=== PATIENT | male | born 1985 | race Caucasian/White ===

== ENCOUNTER 2023-09-02 08:41 | Emergency (ER) | payer MEDICAID, SELFPAY ==
--- NOTE | ~2023-09-02 | XR_ITS ---
EXAMINATION: XR FOOT, LEFT CLINICAL INFORMATION: Puncture dorsal foot evaluate for foreign body COMPARISON: None available. TECHNIQUE: AP, lateral, and oblique views of the left foot. FINDINGS: No acute visible fracture or dislocation. Joint space alignment are maintained. Soft tissues are unremarkable with no radiopaque foreign body identified. XR/XR foot LT min 3V IMPRESSION: 1. No acute visible fracture or dislocation. 2. Soft tissues are unremarkable with no radiopaque foreign body identified.
[2023-09-02 08:50] VITALS: BP 143/99; PULSE 82; RESP 19; TEMP 36.8; O2SAT 99; BMI 21.0
--- NOTE | 2023-09-02 09:07 | ED.LOWEXIN ---
HPI - Extremity Injury (Lower) General Chief Complaint: Extremity Injury, Lower Stated Complaint: Wound L foot Time Seen by Provider: 09/02/23 09:01 Source: patient Mode of arrival: ambulatory Limitations: no limitations History of Present Illness ED Provider: MANJEET ALCANTAR PA-C HPI Narrative: 37-year-old male with pmhx significant for plaque psoriasis presents to the ED today for evaluation of left foot puncture wound sustained yesterday. Patient reports that while walking his dog yesterday, he believes he sustained puncture wound to the bottom of his left foot. He is unsure of what punctured him however went through his knee for and hit the bottom of his left foot. He feels as though there is a foreign body in there however can not visualize this. Endorses area is slightly tender to palpation. Denies discharge or bleeding. Denies hx of diabetes. Denies numbness, tingling, weakness of the LEs. Denies fever, chills. Patient reports tetanus updated 6 months ago. Related Data Previous Rx's ?Medication ?Instructions ?Recorded levofloxacin 750 mg tablet 750 mg PO DAILY 7 days #7 tabs 09/02/23 Allergies Allergy/AdvReac Type Severity Reaction Status Date / Time No Known Allergies Allergy Verified 09/02/23 08:54 Review of Systems Review of Systems: Constitutional: No fever, chills, fatigue, night sweats, weight changes ENT/Mouth: No ear pain, hearing loss, nasal congestion, sinus pain, rhinorrhea, sore throat Eyes: No eye pain, swelling, redness, vision changes, discharge Cardio: No chest pain, palpitations, DIAS, orthopnea, peripheral edema Pulm: No SOB, cough, sputum, wheezing, dyspnea, hemoptysis GI: No nausea, vomiting, hematemesis, abdominal pain, diarrhea, constipation, hematochezia, melena : No irregular bleeding, dysuria, frequency, urgency, hesitancy, hematuria, flank pain, urinary flow changes, urinary incontinence or retention MSK: No back pain, neck pain, joint pain, myalgias, +left foot pain Skin: No lesions, rashes Neuro: No weakness, numbness, paresthesias, LOC, dizziness, headache Psych: No anxiety/panic, depression, SI/HI, AH/VH All other systems reviewed and are negative. [facility] Past Medical History Attestation statement: The following information was validated with the patient. Source: old records reviewed and nursing notes reviewed Social History Social History Smoked in Last 30 Days: No Use of substances other than those prescribed or required for medical reasons: No Advance Directives: No Advance Directives Information Provided: Yes Physical Exam Vital Signs: Vital Signs: Last Vital Signs Temp 98.7 F 09/02/23 10:47 Pulse 77 09/02/23 10:47 Resp 18 09/02/23 10:47 BP 138/80 09/02/23 10:47 Pulse Ox 98 09/02/23 10:47 O2 Del Method Room Air 09/02/23 10:47 BMI result Body Mass Index 21.0 Vital signs stable Const: General: cooperative, healthy appearing, comfortable and no acute distress Orientation/consciousness: patient oriented x3 Limitations: no limitations HEENT: Head: Yes normal to inspection, Yes normocephalic and Yes atraumatic Eyes: General: appearance normal, both eyes and all related structures Conjunctivae: conjunctivae normal Sclerae: sclerae normal Pupils: Equal, round and reactive pupils present Neck: Neck: Yes normal visual inspection and Yes full ROM Resp: Effort & Inspection: normal respiratory effort Auscultation: clear to auscultation bilaterally Cardio: Rate: regular rate Rhythm: regular rhythm Skin: General skin exam: no rashes or lesions noted Neuro: General: patient oriented x3, gait normal and moves all extremities Cranial nerves: Yes Equal, round and reactive pupils present Extrem: Other: + small 0.5 cm puncture wound to plantar aspect of left foot. no obvious fb. Tender to palpation without palpable foreign body. No noted bleeding or discharge. No surrounding erythema. No overlying cellulitic changes. No noted swelling. General: Yes normal to inspection Course Course Course Narrative: 1050-- x-ray left foot without radiopaque foreign body. I do not appreciate foreign body on physical examination. Discussed workup results with patient. Will send him home with levofloxacin and podiatry follow-up. Patient agreeable with this. Patient has remained stable throughout ED visit today. Discussed worrisome signs and symptoms and when to return to the ED. All questions answered at this time. Patient is agreeable with disposition and stable for discharge. Medical Decision Making Medical Decision Making MDM Narrative: 37-year-old male with pmhx significant for plaque psoriasis presents to the ED today for evaluation of left foot puncture wound sustained yesterday. Vital signs stable, afebrile. He is nontoxic-appearing and in no acute distress. On exam, small 0.5 cm puncture wound to plantar aspect of left foot. no obvious fb. Tender to palpation without palpable foreign body. No noted bleeding or discharge. No surrounding erythema. No overlying cellulitic changes. No noted swelling. Differential diagnosis includes abrasion, puncture wound, retained fb. unlikely osteomyelitis. Plan for imaging and re-evaluation. Differential Diagnosis Differential Diagnoses: The differential diagnosis associated with the presentation includes as above. Admission/Observation Not indicated Independent Interpretation I performed an independent interpretation of an: Plain X-Ray Interpretation: X-ray left foot without radiopaque foreign body, agree with radiologist's interpretation. Radiology Impression Discussion of test interpretation with radiology: I have reviewed the radiologist's reading. Radiologist Impression: EXAMINATION: XR FOOT, LEFT CLINICAL INFORMATION: Puncture dorsal foot evaluate for foreign body COMPARISON: None available. TECHNIQUE: AP, lateral, and oblique views of the left foot. FINDINGS: No acute visible fracture or dislocation. Joint space alignment are maintained. Soft tissues are unremarkable with no radiopaque foreign body identified. XR/XR foot LT min 3V IMPRESSION: 1. No acute visible fracture or dislocation. 2. Soft tissues are unremarkable with no radiopaque foreign body identified. External Record Review External record reviewed: Inpatient record, Office record, Outpatient record, Prior outpatient labs, Prior outpatient radiology, Primary care record and Outside ED record Prescription Management I considered prescription management with: Pain Medication Critical Care Time Critical Care Time Critical Care Time: No Discharge Plan Discharge Clinical Impression: Puncture wound of foot Patient Disposition: Home, Self-Care Instructions: Levofloxacin (By mouth), Puncture Wound (ED) Additional Instructions: Your xrays today do not reveal radiopaque foreign body. Your tetanus is up to date. Levofloxacin is an antibiotic that has been sent to your pharmacy for broad spectrum coverage. Take this as prescribed for the next 7 days. Follow up with your PCP. You have also been provided with a referral to podiatry. You may call them to make an appointment, they will not call you. Return with new or worsening symptoms. In the case of an emergency call 911. Prescriptions: New levofloxacin 750 mg tablet 750 mg PO DAILY 7 Days Qty: 7 0RF Referrals: Hunter Riley MD [Physician] - 5 days (puncture wound plantar foot) Interventions: ED Discharge Assessment Last Done: 09/02/23 10:47 Discharge Date/Time: 09/02/23 10:52 Print Language: Niuean
[2023-09-02 10:46] VITALS: BP 138/80; PULSE 77; RESP 18; TEMP 37.1; O2SAT 98
[2023-09-02 10:47] VITALS: BP 138/80; PULSE 77; RESP 18; TEMP 37.1; O2SAT 98
== END 2023-09-02 10:52 | disposition home or self-care (01) ==
PROVIDERS: Emergency Provider Emergency Medicine Emergency Medical Services
DX: S91.332A Puncture wound without foreign body, left foot, initial encounter (principal); W45.8XXA Other foreign body or object entering through skin, initial encounter; Y93.K1 Activity, walking an animal; Y92.480 Sidewalk as the place of occurrence of the external cause; Y99.9 Unspecified external cause status
CPT/HCPCS: 73630; 99283

== ENCOUNTER 2023-11-17 18:33 | Emergency (ER) | payer MEDICAID, SELFPAY ==
--- NOTE | ~2023-11-17 | US_ITS ---
EXAMINATION: US SCROTUM CLINICAL INFORMATION: Left-sided mass. COMPARISON: None available. TECHNIQUE: A sonogram of the scrotum was performed assessing black-scale appearance and color Doppler flow. Spectral Doppler analysis of the arterial and venous flow were performed in the testes bilaterally. FINDINGS: RIGHT: Right testicle measures 4.4 x 2.1 x 2.8 cm, volume 13.7 mL. No focal testicular parenchymal lesions are visualized. A few punctate calcifications are present. Spectral Doppler analysis of the arterial and venous flow is normal in the right testis. Right epididymal head is normal in size. No right hydrocele or varicocele is seen. Right epididymal Doppler flow is normal. LEFT: Left testicle measures 4.2 x 2.8 x 2.6 cm, volume 16.0 mL. No focal testicular parenchymal lesions are visualized. A few punctate calcifications are present. Spectral Doppler analysis of the arterial and venous flow is normal in the left testis. Left epididymal head is normal in size. No left-sided hydrocele but a moderate-sized varicocele is present. Left epididymal Doppler flow is normal. US/US scrotum doppler IMPRESSION: 1. Moderate-sized left-sided varicocele. 2. There is microlithiasis with a few punctate calcifications are present in both testes. Electronically signed by: Nahum Franklin MD 11/17/2023 09:19 PM EDT
--- NOTE | ~2023-11-17 | US_ITS ---
EXAMINATION: US SCROTUM CLINICAL INFORMATION: Left-sided mass. COMPARISON: None available. TECHNIQUE: A sonogram of the scrotum was performed assessing black-scale appearance and color Doppler flow. Spectral Doppler analysis of the arterial and venous flow were performed in the testes bilaterally. FINDINGS: RIGHT: Right testicle measures 4.4 x 2.1 x 2.8 cm, volume 13.7 mL. No focal testicular parenchymal lesions are visualized. A few punctate calcifications are present. Spectral Doppler analysis of the arterial and venous flow is normal in the right testis. Right epididymal head is normal in size. No right hydrocele or varicocele is seen. Right epididymal Doppler flow is normal. LEFT: Left testicle measures 4.2 x 2.8 x 2.6 cm, volume 16.0 mL. No focal testicular parenchymal lesions are visualized. A few punctate calcifications are present. Spectral Doppler analysis of the arterial and venous flow is normal in the left testis. Left epididymal head is normal in size. No left-sided hydrocele but a moderate-sized varicocele is present. Left epididymal Doppler flow is normal. US/US scrotum IMPRESSION: 1. Moderate-sized left-sided varicocele. 2. There is microlithiasis with a few punctate calcifications are present in both testes. Electronically signed by: Nahum Franklin MD 11/17/2023 09:19 PM EDT
[2023-11-17 18:46] VITALS: BP 129/89; PULSE 95; RESP 17; TEMP 36.6; O2SAT 98; BMI 21.6
--- NOTE | 2023-11-17 18:48 | ED_ITS ---
HPI - Male Genitourinary General Chief complaint: Wound/Laceration Stated complaint: skin issue Related Data Previous Rx's ?Medication ?Instructions ?Recorded levofloxacin 750 mg tablet 750 mg PO DAILY 7 days #7 tabs 09/02/23 Allergies Allergy/AdvReac Type Severity Reaction Status Date / Time No Known Allergies Allergy Verified 11/17/23 18:49 [facility] Social History Social History Advance Directives: No Advance Directives Information Provided: No Do you have a plan to hurt others: No Plan Physical Exam Vital Signs: Vital Signs: Last Vital Signs Temp 98 F 11/17/23 18:46 Pulse 95 11/17/23 18:46 Resp 17 11/17/23 18:46 BP 129/89 11/17/23 18:46 Pulse Ox 98 11/17/23 18:46 O2 Del Method Room Air 11/17/23 18:46 BMI result Body Mass Index 21.6 Course Course Course Narrative: This is a Rapid Medical Examination (RME) performed by Lisette Rincon PA-C in triage. Full HPI, ROS, assessment and treatment plan per primary provider in the Main ED. 38 yo male with history of plaque psoriasis who presents to the ER for evaluatio n of a painful mass to the left testicle. he reports drainage from the area. no urinary symptoms, abdominal pain, N/V/D or fevers. no history of DM. he also reports multiple other areas on his skin that is opening up and draining infection. mostly on his lower extremities. in triage he is awake, alert, no distress. speaking in complete sentences. abd is soft and nontender. unable to perform exam in triage. Plan: US scrotum w/ doppler, UA, CT/NG, full skin/ exam Discharge Plan Discharge Clinical Impression: Scrotal mass Patient Disposition: Left W/O Completing Treatment Prescriptions: No Action levofloxacin 750 mg tablet 750 mg PO DAILY 7 Days Qty: 7 0RF Discharge Date/Time: 11/18/23 03:01
== END 2023-11-18 03:01 | disposition left against medical advice (07) ==
LOC: HO.ED 11-18 02:59
PROVIDERS: Emergency Provider Emergency Medicine
DX: N50.82 Scrotal pain (principal); R22.2 Localized swelling, mass and lump, trunk; R10.2 Pelvic and perineal pain
CPT/HCPCS: 76870; 93975; 99281; 99284

== ENCOUNTER 2024-03-24 23:39 | Emergency (ER) | payer MEDICAID, SELFPAY ==
[2024-03-24 23:58] VITALS: BP 146/101; PULSE 114; RESP 20; TEMP 36.7; O2SAT 98; BMI 22.4
[2024-03-25 00:24] LABS: Basophils Percent Auto 0.2 % (0-2); Eosinophils Absolute Auto 0.3 X10*3/uL (0.0-0.4); Eosinophils Percent Auto 1.9 % (0-4); Hematocrit 50.4 % (42.0-52.0); Hemoglobin 17.8 g/dl (14.0-18.0); Imm Gran Abs Auto 0.06 X10*3/uL (0.00-0.03); Imm Gran Pct Auto 0.5 % (0.0-0.4); Lymphocytes Absolute Auto 2.6 X10*3/uL (1.2-4.9); Lymphocytes Percent Auto 20.1 % (20-40); MANUAL DIFF FLAG SCAN; Mean Corpuscular HGB Conc 35.3 g/dl (31.0-36.0); Mean Corpuscular Volume 93.3 fL (80.0-98.0); Mean Platelet Volume 10.1 fL (9.4-12.4); Monocytes Absolute Auto 2.4 X10*3/uL (0.1-1.2); Monocytes Percent Auto 18.3 % (2-11); Neutrophils Absolute Auto 7.6 x10*3/uL (2.0-8.3); Platelet Count 199 X10*3/uL (160-400); Red Cell Distribution Width 13.8 % (11.0-16.0); SCAN SMEAR FLAG 1; White Blood Count 12.9 X10*3/uL (4.8-10.8)
[2024-03-25 00:35] LABS: Lactic Acid 1.3 mmol/L (0.5-2.0)
[2024-03-25 00:42] LABS: Alanine Aminotransferase 29 U/L (0-40); Albumin Level 4.4 g/dL (3.5-5.0); Alkaline Phosphatase 102 U/L (39-117); Anion Gap 16 (12-20); Aspartate Amino Transferase 37 U/L (5-37); Bilirubin Total 0.5 mg/dL (0.0-1.0); Blood Urea Nitrogen 5 mg/dL (9-16); Calcium 9.1 mg/dL (8.4-10.2); Carbon Dioxide 25 mmol/L (22-29); Chloride 102 mmol/L (96-108); Creatinine Clr Calc Pharmacy 116.2; Estimated Glomerular Filt Rate > 60; Glucose Random 94 mg/dL (60-115); Potassium 3.7 mmol/L (3.3-5.1); Sodium 139 mmol/L (135-145); Total Protein 9.6 g/dL (6.5-8.0)
[2024-03-25 00:47] LABS: SLIDE REVIEW VERIFIED
--- OUTSIDE RECORDS SUMMARY | 2024-03-25 03:55 | XMS_ITS | Encounter Summary ---
Author Organization [employer] Address [address] [facility] [facility] [address] [place] [address] Care Team Providers Care Strike Operations Officer Name Role Phone Verenice Brandt DUSTY Primary Care Provider [phone] Reason for Visit * Reason Comments Med Refill Encounter Details Date Type Department Care Team (Late st Contact Info) Description 05/22/2023 Refill [facility] MED[facility] [address] [place] [address] Natty Nielson MD [address] [place] [address] Psoriasis Social History Tobacco Use Types Packs/Day Years Used Date Smoking Tobacco: Every Day Cigarettes 0.5 13 Smokeless Tobacco: Never Comments:Quit x 2 years, res tarted October 2021. Alcohol Use Standard Drinks/Week Comments Yes 70 (1 standard drink = 0.6 oz pure alcohol) Drinking 10+ drinks per day, drinks everything Housing Stability Answer Date Recorded What is your housing situation today? I have zahira juan 12/13/[address] you li ve. Do you have problems with any of the following? None of the above 12/13/2022 Food Insecurity Answer Date Recorded Within the past 12 months, y ou worried that your food would run out before you got money to buy more: Never True 12/13/2022 Within the past 12 months,th e food you bought just didn't last and you didn't have enough money to get more: Never True 04/2022 Transportation Answer Date Recorded In the past 12 months, has l ack of transportation kept you from medical appts, meetings, work or from getting things needed for daily living? No 12/13/2022 Utilities Answer Date Recorded In the past 12 months, has t he electric, gas, oil or water company threatened to shut off services in your home? No 12/13/2022 Depression Answer Date Recorded Patient Health Questionnaire-2 Score 1 03/08/2022 Sex and Gender Information Value Date Recorded Sex Assigned at Male 03/07/2022 8:56 AM EST Legal Sex Male 8:34 PM EDT Gender Identity Male 03/07/2022 8:56 AM EST Sexual Orientation Straight 06/26/2022 3: 01 PM EDT documented as of this encounter Miscellaneous Notes * Telephone Encounter - ITZ Cotton - 05/23/2023 12:03 PM EDT VM from the pharmacy asking for this to be sent so the patient can receive his script for Friday hop picker - marked high priority to Dr Nielson documented in this encounter Plan of Treatment Not on file documented as of this encounter Visit Diagnoses Diagnosis Psoriasis Other psoriasis documented in this encounter Care Teams Strike Operations Officer Relationship Specialty Start Date End Date Verenice Brandt FNP [address] [place] [address] PCP - General Family Medicine 01/09/22 documented as of this encounter
--- OUTSIDE RECORDS SUMMARY | 2024-03-25 03:55 | XMS_ITS | Encounter Summary ---
Author Organization [employer] Address [address] [facility] [address] [place] [address] Care Team Providers Care Crane Ladle Person Name Role Phone Verenice Brandt UDSTY Primary Care Provider [phone] Reason for Visit * Reason Comments Med Refill Encounter Details Date Type Department Care Team (Late st Contact Info) Description 05/05/2023 Refill [facility] MED[facility] [address] [place] [address] Natty Nielson MD [address] [place] [address] Psoriasis Social History Tobacco Use Types Packs/Day [...] encounter Miscellaneous Notes * Telephone Encounter - Amanda Art LPN - 05/09/2023 9:36 AM EDT Call placed to patient. Mailbox full. * Telephone Encounter - Amanda Art LPN - 05/08/2023 9:47 AM EDT Call placed to patient. Mail box full unable to leave a message * Telephone Encounter - Amanda Art LPN - 05/07/2023 10:18 AM EDT Call placed to patient. LMOM to return call. * Telephone Encounter - Amanda Art LPN - 05/06/2023 2:26 PM EDT Call placed to patient. LMOM to return call. documented in this encounter Plan of Treatment Not on file documented as of this encounter Visit Diagnoses Diagnosis Psoriasis Other psoriasis documented in this encounter Care Teams Crane Ladle Person Relationship Specialty Start Date End Date Verenice Brandt FNP [address] [place] [address] PCP - General Family Medicine 01/09/22 documented as of this encounter
--- OUTSIDE RECORDS SUMMARY | 2024-03-25 03:55 | XMS_ITS | Encounter Summary ---
Author Organization [employer] Address [address] [place] [address] Care Team Providers Care Security Tester Name Role Phone Verenice Brandt Primary Care Provider [phone] Encounter Details Date Type Department Care Team (Late st Contact Info) Description 11/19/2023 Orders Only [facility] [address] [place] [address] Verenice Brandt FNP [address] [place] [address] Social History Tobacco Use Types Packs/Day Years [...] PM EDT documented as of this encounter Plan of Treatment Not on file documented as of this encounter Procedures Procedure Name Priority Date/Time Associated Diagnosis Comments US SCROTUM Routine 11/17/2023 9:16 AM EDT documented in this encounter Results * US Scrotum (11/17/2023 9:16 AM EDT) Anatomical Region Laterality Modality Body Ultrasound us Verenice MONTANO IMG US PROCEDURES Final Result documented in this encounter Visit Diagnoses Not on filedocumented in this encounter Care Teams Security Tester Relationship Specialty Start Date End Date Verenice Brandt FNP [address] [place] [address] PCP - General Family Medicine 01/09/22 documented as of this encounter
--- OUTSIDE RECORDS SUMMARY | 2024-03-25 03:55 | XMS_ITS | Encounter Summary ---
Author Organization [employer] Address [address] [place] [address] [facility] [place] [address] Care Team Providers Care Supervisor Briar [employer] Name Role Phone Jerrica Brandtanda DUSTY Primary Care Provider [phone] Reason for Referral * Imaging (Routine) - Pending Review Specialty Diagnoses / Procedures Referred By Liza michael Referred To Contact Radiology Diagnoses Swelling of lymph nodes Procedures US Axilla Alone Left Jayshree Rowe FNP-C [address] [place] [address] Phone: tel: fax: [facility] Radiology[address] Phone: tel: fax: Referral ID Status Reason Start Date Expiration Date V isits Requested Visits Authorized [id number] Pending Review 03/23/2024 03/23/2025 1 1 Reason for Visit * Reason Comments Adenopathy Encounter Details Date Type Department Care Team (Late st Contact Info) Description 03/17/2024 8:20 AM EST Office Visit [facility] [address] [place] [id number] Jayshree Rowe FNP-C [address] [place] [address] Swelling of lymph nodes (Primary Dx); Psoriasis; Tick bite of axillary region, left, sequela; Benign hypertension Social History Tobacco Use Types Packs/Day Years Used Date Smoking Tobacco: Every Day Cigarettes 0.5 13 Passive Smoke Exposure: Current Smokeless Tobacco: Never Tobacco Cessation:Ready to Q uit: Not Asked; Counseling Given: Not Answered Comments:Quit x 2 years, restarted October 2021. Alcohol Use Standard Drinks/Week Comments Yes 70 (1 standard drink = 0.6 oz pure alcohol) Drinking 10+ drinks per day, drinks everything Alcohol Answer Date Recorded How often do you have a drink containing alcohol ? 0 03/17/2024 How many drinks containing a lcohol do you have on a typical day when you are drinking? 0 03/17/2024 How often do you have six or more drinks on one occasion? 0 03/17/2024 Housing Stability Answer Date Recorded What is your housing situation today? I have zahira juan 03/17/[address] you li ve. Do you have problems with any of the following? None of the above 03/17/2024 Food Insecurity Answer Date Recorded Within the past 12 months, y ou worried that your food would run out before you got money to buy more: Never True 03/17/2024 Within the past 12 months,th e food you bought just didn't last and you didn't have enough money to get more: Never True 06/2024 Transportation Answer Date Recorded In the past 12 months, has l ack of transportation kept you from medical appts, meetings, work or from getting things needed for daily living? No 03/17/2024 Intimate Partner Violence Answer Date R ecorded Within the last year, have y ou been afraid of your partner or ex-partner? 2 03/17/2024 Within the last year, have y ou been humiliated or emotionally abused in other ways by your partner or ex-partner? 2 Within the last year, have y ou been kicked, hit, slapped, or otherwise physically hurt by your partner or ex-partner? 2 03/17/2024 Within the last year, have y ou been raped or forced to have any kind of sexual activity by your partner or ex-partner? 2 03/17/2024 Utilities Answer Date Recorded In the past 12 months, has t he electric, gas, oil or water company threatened to shut off services in your home? No 03/17/2024 Depression Answer Date Recorded Patient Health Questionnaire-2 Score 0 03/17/2024 Internet Access Answer Date Recorded Internet Access Q1 Yes 03/17/2024 Internet Access Q2 Not on file 03/17/2024 Education Answer Date Recorded What is the highest level of school you have completed or the highest degree you have received? Associate degree: occupational, technical, or vocational program 03/17/2024 Sex and Gender Information Value Date Recorded Sex Assigned at Male 03/07/2022 8:56 AM EST Legal Sex Male 8:34 PM EDT Gender Identity Male 03/07/2022 8:56 AM EST Sexual Orientation Straight 06/26/2022 3: 01 PM EDT Occupation Industry Job Start Date Job End Date Not on file Not on file Not on file Not on file documented as of this encounter Last Filed Vital Signs Vital Sign Reading Time Taken Comments Blood Pressure 150/70 03/17/2024 8:24 AM EST Pulse 100 03/17/2024 8:24 AM EST Temperature 36.6 ??C (97.9 ??F) 03/17/2024 8:24 AM ES T Respiratory Rate - - Oxygen Saturation 97% 03/17/2024 8:24 AM EST Inhaled Oxygen Concentration - - Weight 68.5 kg (151 lb) 03/17/2024 8:24 AM EST Height 172.7 cm (5' 8 ) 03/17/2024 8:24 AM EST Body Mass Index 22.96 03/17/2024 8:24 AM EST documented in this encounter Progress Notes * DUSTY Smith-Urbano - 03/17/2024 8:20 AM EST Images from the original note were not included. 03/17/24 Fadi Malik 1985 [id number] Fadi Malik is a 38 y.o. male here today for Adenopathy. HPI: HPI Patient presents with pain and swelling due to a swollen lymph node in the Lt axilla. Patient is immunocompromised due to taking a biologic agent for psoriasis. Currently breakout only on posterior RT calf. recalls having a tick bite. He was never tested or treated. Patient will be tested for tick borne illness today. Blood pressure elevated today due to being out of BP meds. Refill of Amlodipineordered. Patient needed refill on his biologic agent. Tick panel was negative. Ultrasound ordered to further evaluate the swollen lymph node. MEDICATIONS: Current Outpatient Medications: hydrOXYzine HCl (Atarax) 25 MG tablet, Take 25 mg by mouth if needed in the morning and at bedtime., Disp: , Rfl: ixekizumab (Taltz) 80 MG/ML injection, INJECT 1 PEN UNDER THE SKIN EVERY 4 WEEKS (Patient taking differently: Inject 80 mg under the skin. INJECT 1 PEN UNDER THE SKIN EVERY 4 WEEKS), Disp: 3 mL, Rfl:5 triamcinolone (Kenalog) 0.1 % ointment, APPLY TO ARMS, TRUNK, AND LEGS TWICE A DAY NEEDED FOR FLARES, Disp: , Rfl: b complex vitamins capsule, Take 1 capsule by mouth in the morning., Disp: 30 capsule, Rfl: 11 disulfiram (Antabuse) 250 MG tablet, Take 1 tablet (250 mg) by mouth in the morning., Disp: 30 tablet, Rfl: 11 naltrexone (Depade) 50 MG tablet, Take 1 tablet (50 mg) by mouth in the morning., Disp: 30 tablet, Rfl: 11 RECENT LABS: No results found for: CBCDIF , BMP , HGBA1C , MICROALB , LDLCHOL , TRIG , B12 REVIEW OF SYSTEMS: Review of Systems Skin: Plaque on lower posterior calf. All other systems reviewed and are negative. Swollen 10 mm lymph node in Lt axilla. PHYSICAL EXAM: BP (S) (!) 150/70 (BP Location: Left arm, Patient Position: Sitting, BP Cuff Size: Adult) Pulse 100 Temp 97.9 ??F (36.6 ??C) (Temporal) Ht 5' 8 (1.727 m) Wt 151 lb (68.5 kg) SpO2 97% BMI22.96 kg/m?? Physical Exam Vitals and nursing note reviewed. Constitutional: Appearance: Normal appearance. HENT: Head: Normocephalic and atraumatic. Nose: Nose normal. No congestion or rhinorrhea. Cardiovascular: Rate and Rhythm: Normal rate and regular rhythm. Pulses: Normal pulses. Heart sounds: Normal heart sounds. Pulmonary: Effort: Pulmonary effort is normal. Breath sounds: Normal breath sounds. Musculoskeletal: General: Normal range of motion. Cervical back: Normal range of motion. Skin: General: Skin is warm and dry. Comments: Swollen RT axilla lymph node 10 mm in size. Neurological: General: No focal deficit present. Mental Status: He is alert and oriented to person, place, and time. Psychiatric: Mood and Affect: Mood normal. Behavior: Behavior normal. Thought Content: Thought content normal. Judgment: Judgment normal. 06/26/2022 2:21 PM 07/31/2022 3:44 PM 08/06/2022 2:38 PM 09/03/2022 11:00 AM 05/13/2023 8:57 AM 05/27/2023 9:58 AM 03/17/2024 8:24 AM Vitals Systolic 142 126 144 129 131 100 150 Diastolic 100 87 86 84 84 70 70 Heart Rate 109 81 101 65 96 76 100 Temp 97.9 ??F (36.6 ??C) 98.1 ??F (36.7 ??C) 97.3 ??F (36.3 ??C) 97.7 ??F (36.5 ??C) 97.7 ??F (36.5??C) 97.5 ??F (36.4 ??C) 97.9 ??F (36.6 ??C) Resp 16 16 16 16 16 Height (in) 5' 8 (1.727 m) 5' 8 (1.727 m) 5' 8 (1.727 m) 5' 8 (1.727 m) 5' 8 (1.727 m) 5' 8 (1.727 m) 5' 8 (1.727 m) Weight (lb) 129.2 134 135.8 144.4 142.4 142 151 BMI 19.64 kg/m2 20.37 kg/m2 20.65 kg/m2 21.96 kg/m2 21.65 kg/m2 21.59 kg/m2 22.96 kg/m2 BSA (m2) 1.68 m2 1.71 m2 1.72 m2 1.77 m2 1.76 m2 1.76 m2 1.81 m2 Visit Report Report Report Report Report Report Report Significant value No Known Allergies ASSESSMENT AND PLAN: Problem List Items Addressed This Visit None Visit Diagnoses Psoriasis Encounter Diagnoses Name Primary? Psoriasis Tick bite of axillary region, left, sequela Swelling of lymph nodes Yes Benign hypertension Follow up after lab test results are received or if swelling in axilla increases in size. Called patient on 03/23/2024 to answer questions about the Tick panel that was recently ordered. Patient stated that he was in increased pain and reduced range of motion and that the lump in his LT axilla had increased in size and was now warm and red. He asked about taking antibiotics that he had at home which was discouraged. He was advised to go to the emergency department. Patient agreed that he would go to the emergency department. Take medications as prescribed. APRIL Smith [address] [address] documented in this encounter Miscellaneous Notes * Addendum Note - APRIL Smith - 03/17/2024 8:20 AM EST Addended by: JAYSHREE CERRATO on: 03/23/2024 02:04 PM Modules accepted: Orders documented in this encounter Plan of Treatment Scheduled Orders Name Type Priority Associated Diagnoses Orde r Schedule US Axilla Alone Left Imaging Routine Swelling of lymph nodes Expected: 03/23/2024, Expires: 03/23/2025 documented as of this encounter Procedures Procedure Name Priority Date/Time Associated Diagnosis Comments [facility] TICK PCR PANEL Routine 03/17/2024 Tick bite of axillary region, left, sequela documented in this encounter Results * [facility] Tick PCR Panel (03/17/2024) Blood Venous blood specimen / Unknown us Jayshree CHEN LAB BLOOD ORDERABL ES Final Result EXTERNAL LAB documented in this encounter Visit Diagnoses Diagnosis Swelling of lymph nodes- Primary Enlargement of lymph nodes Psoriasis Other psoriasis Tick bite of axillary region, left, sequela Benign hypertension Essential hypertension, benign documented in this encounter Care Teams Supervisor [employer] Relationship Specialty Start Date End Date Verenice Brandt FNP [address] [place] [address] PCP - General Family Medicine 01/09/22 documented as of this encounter
--- OUTSIDE RECORDS SUMMARY | 2024-03-25 03:55 | XMS_ITS | Clinical Summary ---
Author Organization [facility] Address [address] [place] [address] Care Team Providers Care Machinery Mechanic Name Role Phone Unavailable Primary Care Provider Unavailabl e Source Comments PLEASE NOTE, if this patient is a minor, it may be UNLAWFUL to discuss sensitive information that is contained in these records (such as FAMILY PLANNING, MENTAL HEALTH or SUBSTANCE ABUSE) with the minor patient's parent or other person without the patient's specific authorization.[facility] Allergies No known active allergies Medications betamethasone dipropionate (DIPROLENE) 0.05 % ointmentIndicatio ns:Psoriasis Apply topically 2 (two) times daily 45 g 8 Active hydrocortisone 1 % creamIndications: Psoriasis Apply topically 2 (two) times daily 30 g 8 Active Active Problems Problem Noted Date Diagnosed Date Psoriasis 08/27/2017 Overview (08/27/2017): ? Likely based on presentation. Referred to Derm for further evaluation. Can start betamethasone 0.05%, hydrocortisone for face Discussed continuing other skin care regimen as this was helping Family History Medical History Relation Name Comments Vision Problems Father Hypertension Mother Cancer Neg Diabetes Neg Relation Name Status Comments Father Alive Mother Alive Social History Tobacco Use Types Packs/Day Years Used Date Smoking Tobacco: Some Days Cigarettes Smokeless Tobacco: Never Tobacco Cessation:Ready to Q uit: No; Counseling Given: Yes Comments:1-2 cig per month Alcohol Use Standard Drinks/Week Comments Yes 0 (1 standard drink = 0.6 oz pur e alcohol) 1-2 drinks per week Social Connections Answer Date Recorded Social Connections and Isolation 0 10/05/2018 Financial Resource Strain Answer Date R ecorded Financial Resource Strain 0 2018 Stress Answer Date Recorded Stress 0 10/05/2018 Physical Activity Answer Date Recorded Physical Activity 0 10/05/2018 Food Insecurity Answer Date Recorded Food 0 10/05/2018 Transportation Needs Answer Date Record ed Transportation 0 10/05/2018 Housing Stability Answer Date Recorded Housing 0 10/05/2018 Safety and Environment Answer Date Brennan rded Safety 0 10/05/2018 Utilities Answer Date Recorded Utilities 0 10/05/2018 Employment Answer Date Recorded Employment 0 10/05/2018 Sex and Gender Information Value Date Recorded Sex Assigned at Male 08/27/2017 6:18 AM PDT Legal Sex Male 5:55 AM PDT Gender Identity Male 08/27/2017 6:18 AM PDT Sexual Orientation Straight 08/27/2017 6: 18 AM PDT Last Filed Vital Signs Vital Sign Reading Time Taken Comments Blood Pressure 143/90 08/27/2017 9:06 AM EDT Pulse 88 08/27/2017 9:06 AM EDT Temperature 36.8 ??C (98.3 ??F) 08/27/2017 9:06 AM ED T Respiratory Rate - - Oxygen Saturation 97% 08/27/2017 9:06 AM EDT Inhaled Oxygen Concentration - - Weight 63.5 kg (140 lb) 08/27/2017 9:06 AM EDT Height 172.7 cm (5' 8 ) 08/27/2017 9:06 AM EDT Body Mass Index 21.29 08/27/2017 9:06 AM EDT Plan of Treatment Not on file Insurance [employer]
--- OUTSIDE RECORDS SUMMARY | 2024-03-25 03:55 | XMS_ITS | Clinical Summary ---
Author Organization [facility] Address [address] [place] [address] Care Team Providers Care Greeting Card Writer Name Role Phone Unavailable Primary Care Provider Unavailabl e Social History Tobacco Use Types Packs/Day Years Used Date Smoking Tobacco: Never Assessed Sex and Gender Information Value Date Recorded Sex Assigned at Not on file Gender Identity Not on file Sexual Orientation Not on file Plan of Treatment Health Maintenance Due Date Last Done Comments Hepatitis C Virus Screening 1985 HIV Screening 11/07/2000 DTaP/Tdap/Td Vaccines (1 - Tdap) 11/07/2006 Hepatitis B Vaccines (1 of 3 - 19+ 3-dose series) 11/07/2006 COVID-19 Vaccine (2023-2 5 season) 2023 HPV Vaccines Aged Out No longer eligi ble based on patient's age to complete this topic Pneumococcal Vaccine: Pediat mercedes (0-5 Years) and At-Risk Patients (6 to 49 Years) Aged Out No longer eligible b ased on patient's age to complete this topic
--- OUTSIDE RECORDS SUMMARY | 2024-03-25 03:55 | XMS_ITS | Encounter Summary ---
Author Organization [employer] Address [address] [facility] [address] [place] [address] Care Team Providers Care Drawing Supervisor Name Role Phone Verenice Brandt DUSTY Primary Care Provider [phone] Reason for Visit * Reason Comments Med Change Request Encounter Details Date Type Department Care Team (Late st Contact Info) Description 07/09/2023 Refill [place] [facility] [address] [place] [address] Natty Nielson MD [address] [place] [address] Alcohol abuse Social History Tobacco Use Types Packs/Day Years [...] Telephone Encounter - Amanda Art LPN - 07/22/2023 8:28 AM EDT Nursing has been unable to reach patient * Telephone Encounter - Paulette Ambrose RN - 07/17/2023 12:27 PM EDT Sent [employer] (air taxi) message. * Telephone Encounter - Amanda Art LPN - 07/15/2023 9:36 AM EDT Call placed to patient. LMOM to return call. * Telephone Encounter - Amanda Art LPN - 07/14/2023 1:50 PM EDT Call placed to patient. LMOM to return call. * Telephone Encounter - Shruthi Correa RN - 07/11/2023 11:20 AM EDT LMOM for patient to call. documented in this encounter Plan of Treatment Not on file documented as of this encounter Visit Diagnoses Diagnosis Alcohol abuse Nondependent alcohol abuse, unspecified drinking behavior documented in this encounter Care Teams Drawing Supervisor Relationship Specialty Start Date End Date Verenice Brandt FNP [address] [place] [address] PCP - General Family Medicine 01/09/22 documented as of this encounter
--- OUTSIDE RECORDS SUMMARY | 2024-03-25 03:55 | XMS_ITS | Clinical Summary ---
Author Organization [employer] Address [address] [facility] 7t [place] [address] Care Team Providers Care Case Management Director Name Role Phone Verenice Brandt DUSTY Primary Care Provider [phone] Allergies No known active allergies Medications * This document contains information received from the source organization and may not represent a complete record from that organization. hydrOXYzine HCl (Atarax) 25 MG tablet Take 25 mg by mouth if needed in the morning and at bedtime. 05/24/19 23 Active triamcinolone (Kenalog) 0.1 % ointment APPLY TO ARMS, TRUNK, AND LEGS TWICE A DAY NEEDED FOR FLARES 04/02/19 24 Active ixekizumab (Taltz) 80 MG/ML injectionIndicat ions:Psoriasis Inject 1 mL (80 mg) under the skin every 28 (twenty-eig ht) days. INJECT 1 PEN UNDER THE SKIN EVERY 4 WEEKS 1 mL 3 03/17/19 25 025 Active amLODIPine (Norvasc) 10 MG tabletIndication s:Benign hypertension Take 1 tablet (10 mg) by mouth Once per day. 30 tablet 5 03/17/19 25 025 Active ibuprofen 400 MG tablet Take 400 mg by mouth. 06/04/19 23 025 Discontinued naltrexone (Depade) 50 MG tabletIndication s:Alcohol abuse Take 1 tablet (50 mg) by mouth in the morning. 30 tablet 11 05/27/19 24 025 Discontinued([place] refused) disulfiram (Antabuse) 250 MG tabletIndication s:Alcohol abuse Take 1 tablet (250 mg) by mouth in the morning. 30 tablet 05/27/19 24 025 Discontinued([place] refused) b complex vitamins capsuleIndicatio ns:Macrocytosis without anemia Take 1 capsule by mouth in the morning. 30 capsule 11 05/27/19 24 025 Discontinued([place] refused) ixekizumab (Taltz) 80 MG/ML injectionIndicat ions:Psoriasis INJECT 1 PEN UNDER THE SKIN EVERY 4 WEEKS 3 mL 5 11/20/19 24 025 Discontinued(Re order (will not trigger notification to Pharmacy)) Active Problems Problem Noted Date Diagnosed Date Tick bite of axillary region, left, sequela 06/2024 Swelling of lymph nodes 03/17/2024 Major depressive disorder, severe 05/13/2023 Macrocytosis without anemia 07/31/2022 Overview (07/31/2022): Lab Results Component Value Date WBC 5.3 06/26/2022 HGB 16.4 06/26/2022 HCT 48.7 06/26/2022 MCV 95.1 (H) 06/26/2022 PLT 115 (L) 06/26/2022 Assessment & Plan (07/31/2022 4:37 PM EDT): Will repeat CBC today. Has not yet started Vitamin B complex - will order today. Discussed B vitamin supplementation - agreeable to start. PLTs low - repeating CBC for trend. Elevated LFTs 07/31/2022 Overview (07/31/2022): Lab Results Component Value Date ALT 66 (H) 06/26/2022 AST 120 (H) 06/26/2022 ALKPHOS 144 (H) 06/26/2022 Assessment & Plan (07/31/2022 4:41 PM EDT): Hep B and C negative. Likely related to ETOH intake. Reviewed lab values and health implications. Encouraged to consider cutting down on drinking. Mental disorder 07/31/2022 Assessment & Plan (07/31/2022 4:42 PM EDT): No formal MH diagnosis. Needs evaluation. Brother by suicide at age 18. Alcohol abuse 03/10/2022 Overview (07/31/2022): [place] 20[place] [facility] [place] x 2 weeks. Relapsed, then [place] [facility] [place] [facility] - stayed for 8 days then self-discharged, relapsed immediately. Was drinking 1 pint per day, down from 2 pints per day before detox. Now drinking 8x 12 oz beer/cider per day and a few times per week drinking 1 pint of fireball. Assessment & Plan (07/31/2022 4:36 PM EDT): Discussed MAT in the past, declined at that time. Has increased ETOH from last visit. Assessment & Plan (07/15/2022 5:44 PM EDT): Discussed ETOH. Had intake at [facility] is going to start counseling. Support and encouragement provided. Assessment & Plan (06/26/2022 3:10 PM EDT): On Keppra for hx of ETOH withdrawal seizures. Also on Hydroxyzine. Will refer to Dr. Nielson for further treatment options. Is interested in counseling - Given names of a few counseling centers, Mr. Malik will call to schedule intake. Assessment & Plan (03/10/2022 2:28 PM EST): Heavy, daily ETOH intake starting in the AM. History of ETOH withdrawal seizures. Would like to cut down, but does not want to go into detox. Will continue to discuss safe options. Benign hypertension 03/10/2022 Overview (07/31/2022): BP Readings from Last 4 Encounters: 07/31/22 126/87 06/26/22 (!) 142/100 03/22/22 (!) 138/92 03/08/22 134/90 Assessment & Plan (07/31/2022 4:33 PM EDT): BP at goal after increase of Amlodipine at last visit. Denies any medication side effects. Will continue current treatment plan at this time. Assessment & Plan (06/26/2022 3:06 PM EDT): BP remains above goal. Taking Amlodipine 5mg, intermittently. BP remains significantly above goal, will increase Amlodipine to 10mg. Assessment & Plan (03/10/2022 2:15 PM EST): BP elevated. Never been HTN meds before. Discussed options - watch and wait vs treatment. Mr. Malik prefers to start treatment- discussed options. Will start Amlodipine. Reviewed medication, administration, and potential side effects. Will RTC in 2 weeks for BP check. Psoriasis 08/27/2017 Overview (05/14/2023): [facility] 04/02/23 FU: start empiric doxycyline 100mg bid for 10days. C & S obtained. Start tac 0.1% ointment to arms, trunk, legs BID prn flares. Start alclometasone 0.05% ointment to face and ears BID PRN flares Start fluocinonide 0.05% solution to scalp BID prn flares. Labs ordered CBC, CMP, hep and tb neg 6 mo ago. Hx elevated lft d/t etoh. Plan to restart taltz 160mg sc inj week 0, then 80mg sc inj qow for weeks 2-12 then 80 mg sc inj q4w. Thereafter pending lab results. PA will need to be completed. SE of treatment and importance of med compliance discussed. FU 2 mo. Assessment & Plan (07/31/2022 4:34 PM EDT): Missed appointment with Dr. Campbell in April. Given phone number to call and reschedule. Assessment & Plan (03/10/2022 2:25 PM EST): Improved from baseline, but has significant rash on legs. Had been seen by dermatology in [place] in the past, was going to start biologic but moved before insurance approved med. Will refer to dermatology for further evaluation. Seizure due to alcohol withdrawal Overview (07/15/2022): Alcohol induced/withdrawl seizures. 8-10 seizures in life, last September 2021. On Keppra 750mg daily. Assessment & Plan (07/31/2022 4:35 PM EDT): Having episodes of agitation on Keppra. Would like to change medication. Has consult with Dr. Nielson on 08/06 - for MH medication eval and medication management of ETOH seizures. Assessment & Plan (07/15/2022 5:43 PM EDT): Noticed having agitation/rage and feels this is related to Keppra. Would like to change seizure medication. Also starting counseling at [facility] - no current diagnosis. Discussed treatment options - will refer to Dr. Nielson for MH evaluation and consult for MH medication in hopes of selecting medication that will treat both conditions. Mr. Malik will continue Keppra at this time. Encounters Date Type Department Care Team Description 03/18/2024 Telephone [facility] [address] [place] [address] Verenice Brandt FNP discuss blood work results 03/17/2024 8:20 AM EST Office Visit [facility] [address] [place] [address] Jayshree Ramos FNP-C Swelling of lymph nodes (Primary Dx); Psoriasis; Tick bite of axillary region, left, sequela; Benign hypertension 03/17/2024 Orders Only [address] [address] Jayshree Ramos FNP-C 03/16/2024 Telephone [facility] MEDICAL [address] [place] [address] Verenice Brandt FNP Joint Swelling 01/30/2024 Telephone [facility] MEDICAL [address] [place] [address] Verenice Brandt FNP urology referral from Last 3 Months Immunizations Name Administration Dates Next Due Moderna Covid-19 Vaccine 12+ 07/14/2020,06/17/19 21 Tdap 05/27/2023 Family History Medical History Relation Name Comments Mental illness Brother suicide Brother Gunshot Gout Father Hypertension Mother Relation Name Status Comments Brother Father Alive Mother Alive Social History Tobacco [...] is your housing situation today? I have zahirahira juan 03/17/[address] you [...] file Not on file Not on file Last Filed Vital Signs Vital Sign Reading Time Taken Comments Blood Pressure 150/70 03/17/2024 8:24 AM EST Pulse 100 03/17/2024 8:24 AM EST Temperature 36.6 ??C (97.9 ??F) 03/17/2024 8:24 AM ES T Respiratory Rate 16 05/27/2023 9:58 AM EDT Oxygen Saturation 97% 03/17/2024 8:24 AM EST Inhaled Oxygen Concentration - - Weight 68.5 kg (151 lb) 03/17/2024 8:24 AM EST Height 172.7 cm (5' 8 ) 03/17/2024 8:24 AM EST Body Mass Index 22.96 03/17/2024 8:24 AM EST Plan of Treatment Health Maintenance Due Date Last Done Comments Lipid Panel 1987 Hepatitis A Vaccines (1 of 2 - Risk 2-dose series) 11/07/2006 Hepatitis B Vaccines (1 of 3 - 19+ 3-dose series) 11/07/2006 Pneumococcal Vaccine: Pediatrics (0 to 5 Years) and At-Risk Patients (6 to 49) Years) (1 of 2 - PCV) 11/07/2006 Zoster Vaccines (1 of 2) 11/07/2006 COVID-19 Vaccine (3 - Modern a risk series) 08/11/2020 07/14/2020, 06/16/2020 Influenza Vaccine (#1) 2023 Alcohol/Substance Use Screening 03/17/2025 03/17/2024 Depression Screening 03/17/2025 03/17/2024, 03/17/2024 Family Planning (PISQ) 03/17/2025 03/17/2024 SDOH Screening 03/17/2025 03/17/2024 Tobacco Screening 03/17/2025 03/17/2024 DTaP/Tdap/Td Vaccines (2 - T d or Tdap) 05/26/2033 05/27/2023 RSV Patients and Patients Aged 60 years or older (1 - 1-dose 75+ series) 11/07/2062 HIV Screening Completed 06/26/2022 Hepatitis C Screening Completed 06/26/2022 HIB Vaccines Aged Out No longer eligi ble based on patient's age to complete this topic HPV Vaccines Aged Out No longer eligi ble based on patient's age to complete this topic IPV Vaccines Aged Out No longer eligi ble based on patient's age to complete this topic Meningococcal Vaccine Aged Out No tim laly eligible based on patient's age to complete this topic RSV under 20 months Aged Out No longe r eligible based on patient's age to complete this topic Rotavirus Vaccines Aged Out No longer eligible based on patient's age to complete this topic Procedures Procedure Name Priority Date/Time Associated Diagnosis Comments TICKBORNE DISEASE ANTIBODY PROFILE, SERUM Routine 03/17/2024 10:10 AM EST NORTHEAST TICK PCR PANEL Routine 03/17/2024 Tick bite of axillary region, left, sequela HEPATITIS C ANTIBODY W/RFLX HCV QUANT PCR AND GENOTYPE Routine 06/26/2022 3:20 PM EDT HIV ANTIBODY/ANTIGEN, 4TH GENERATION Routine 06/26/2022 3:06 PM EDT Routine screening for STI (sexually transmitted infection) from Last 3 Months or Most Recently Relevant to Health Maintenance Results * Tickborne Disease Antibody Profile, Serum (03/17/2024 10:10 AM EST) Lyme Antibody Screen Negative Negative [facility] 1 Comment: Lyme antibodies not detected. Reflex testing is not indicated. No laboratory evidence of infection with B. burgdorferi (Lyme disease). Negative results may occur in patients recently infected (less than or equal to 14 days) with B. burgdorferi. ??If recent infection is suspected, repeat testing on a new sample collected in 7 to 14 days is recommended. Babesia microti Antibody IgG <1:10 Neg:<1:10 [facility] 2 E.chaffeensis Antibody IgG Negative Neg:<1:64 [facility] 2 A. phagocytophilum Antibody (IgG) Negative Neg:<1:64 [facility] 2 Result Comments: [facility] Comment: Antibody titers may be negative in the first 7-10 days of illness. A four-fold rise in IgG antibody titers for Babesia microti, Anaplasma phagocytophilum, and/or Ehrlichia chaffeensis in paired samples (acute and convalescent) supports the diagnosis of babesiosis, anaplasmosis, and/or ehrlichiosis, respectively. 03/17/2024 10:1 0 AM EST 03/17/2024 Narrative [facility] - 03/23/2024 8:05 PM EST Test(s) [id number] microti IgG was developed and its performance characteristics determined by [facility]. It has not been cleared or approved by the Food and Drug Administration. Performed at: ??01 - [facility] [address] ??[id number] Production Sound Mixer: Carmela Nicole MD, Phone: ??[phone] Performed at: ??02 - [facility] [address] ??[id number] Production Sound Mixer: Radha Rey MD, Phone: ??[phone] Specimen Comment: A courtesy copy of this report has been sent to [phone] Jayshree Rowe FBI FIELD AGENT-C LAB BLOOD ORDERABL ES Final Result [facility] * Northeast Tick PCR Panel (03/17/2024) Blood Venous blood specimen / Unknown Jayshree Rowe FBI FIELD AGENT-C LAB BLOOD ORDERABL ES Final Result Performing Organization Address [facility] Co de Phone Number EXTERNAL LAB * Hepatits C Antibody w/Reflex HCV Quant PCR and Genotyping (06/26/2022 3:20 PM EDT) Hepatitis C Virus Ab, Serum NEGATIVE (NEG) [facility] Comment: Reference range: Negative This test was performed on the [employer] Functional Mental Disability Teacher immunoassay system. Testing performed or reported by [facility], a Service of [facility], [facility] [place] [address] Dada Tripp MD, Tuber Helper CLIA# [id number] 06/26/2022 3:20 PM EDT 06/26/2022 3:28 PM EDT Result [facility] Verenice Brandt [employer] LAB BLOOD ORDERABLES Final Resul t Performing Organization Address [facility] de Phone Number [facility] [address] [place] [id number] * HIV Antibody/Antigen, 4th Generation (06/26/2022 3:06 PM EDT) Result 4th Gen HIV Antibody Antigen NEGATIVE (NEG) [facility] Comment: Negative for antibodies to HIV 1 and HIV 2 and P24 antigen. Reference range: Negative Additional note: Written patient authorization is required for each separate release of this test result. This test was performed on the [employer] Functional Mental Disability Teacher immunoassay system. Testing performed or reported by [facility], a Service of [facility], [address] [place] [address] Dada Tripp MD, Tuber Helper CLIA# [id number] Blood 06/26/2022 3:06 PM EDT 06/26/2022 3:08 PM EDT [facility] LAB BLOOD ORDERABLES Final Resul t Performing Organization Address [facility] Co de Phone Number [facility] [address] [place] [address] from Last 3 Months or Most Recently Relevant to Health Maintenance Insurance [facility] C3 Care Teams Case Management Director Relationship Specialty Start Date End Date Verenice Brandt FNP [address] [place] [address] PCP - General Family Medicine 01/09/22
--- OUTSIDE RECORDS SUMMARY | 2024-03-25 03:55 | XMS_ITS | Encounter Summary ---
Author Organization [employer] Address [address] [facility] [address] [place] [address] Care Team Providers Care Automatic Mounter Name Role Phone Verenice Brandt Primary Care Provider [phone] Reason for Visit * Reason Onset Date Comments Joint Swelling 03/16/2024 Encounter Details Date Type Department Care Team (Late st Contact Info) Description 03/16/2024 Telephone [facility] MED[facility] [address] [place] [address] Verenice Brandt FNP [address] [place] [address] Joint Swelling Social History Tobacco Use Types Packs/Day Years [...] the past 12 months, has t he [employer], [employer], oil or water [employer] threatened to shut off services in your home? No 03/17/2024 Depression Answer Date Recorded Patient Health Questionnaire-2 Score 0 03/17/2024 Internet Access Answer Date Recorded Internet Access Q1 Yes 03/17/2024 Internet Access Q2 Not on file 03/17/2024 Sex and Gender Information Value Date Recorded Sex Assigned at Male 03/07/2022 8:56 AM EST Legal Sex Male 8:34 PM EDT Gender Identity Male 03/07/2022 8:56 AM EST Sexual Orientation Straight 06/26/2022 3: 01 PM EDT documented as of this encounter Miscellaneous Notes * Telephone Encounter - Rozina Ocasio LPN - 03/16/2024 8:53 AM EST Office visit scheduled. * Telephone Encounter - Yamilet Vasquez - 03/16/2024 8:39 AM EST Pt called, reports swollen and tender lymph node in armpit since 2-3 days ago, has gotten progressively more severe documented in this encounter Plan of Treatment Not on file documented as of this encounter Visit Diagnoses Not on filedocumented in this encounter Care Teams Automatic Mounter Relationship Specialty Start Date End Date Verenice Brandt FNP [address] [place] [address] PCP - General Family Medicine 01/09/22 documented as of this encounter
--- OUTSIDE RECORDS SUMMARY | 2024-03-25 03:55 | XMS_ITS | Encounter Summary ---
Author Organization [employer] Address [address] [facility] 7t [place] [address] Care Team Providers Care Customs Collector Name Role Phone Verenice Brandt DUSTY Primary Care Provider [phone] Reason for Visit * Reason Comments Med Refill Encounter Details Date Type Department Care Team (Late st Contact Info) Description 09/03/2022 Refill [facility] MEDICAL [address] [place] [address] Natty Nielson MD [address] [place] [address] Bipolar 1 disorder, mixed ([facility]) Social History Tobacco Use Types Packs/Day Years Used Date Smoking Tobacco: Every Day Cigarettes 0.5 13 Smokeless Tobacco: Never Comments:Quit x 2 years, res tarted October 2021. Alcohol Use Standard Drinks/Week Comments Yes 70 (1 standard drink = 0.6 oz pure alcohol) Drinking 10+ drinks per day, drinks everything Depression Answer Date Recorded Patient Health Questionnaire-2 Score 1 03/08/2022 Sex and Gender Information Value Date Recorded Sex Assigned at Male 03/07/2022 8:56 AM EST Legal Sex Male 8:34 PM EDT Gender Identity Male 03/07/2022 8:56 AM EST Sexual Orientation Straight 06/26/2022 3: 01 PM EDT COVID-19 Exposure Response Date Recorded In the last 10 days, have yo u been in contact with someone who was confirmed or suspected to have Coronavirus/COVID-19? No / Unsure 08/06/2022 2:31 PM EDT documented as of this encounter Plan of Treatment Not on file documented as of this encounter Visit Diagnoses Diagnosis Bipolar 1 disorder, mixed ([facility]) documented in this encounter Care Teams Customs Collector Relationship Specialty Start Date End Date Verenice Brandt FNP [address] [place] [address] PCP - General Family Medicine 01/09/22 documented as of this encounter
--- OUTSIDE RECORDS SUMMARY | 2024-03-25 03:55 | XMS_ITS | Encounter Summary ---
Author Organization [employer] Address [address] [facility] [address] [place] [address] Care Team Providers Care Media Developer Name Role Phone Verenice Brandt DUSTY Primary Care Provider [phone] Encounter Details Date Type Department Care Team (Late st Contact Info) Description 03/17/2024 Orders Only [place] [facility] MED[facility] [address] [place] [address] Jayshree Rowe FNP-[place]ano [address] [place] [address] Social History Tobacco Use Types Packs/Day Years Used Date Smoking Tobacco: Every Day Cigarettes 0.5 13 Passive Smoke Exposure: Current Smokeless Tobacco: Never Comments:Quit x 2 years, [...] on file documented as of this encounter Plan of Treatment Not on file documented as of this encounter Procedures Procedure Name Priority Date/Time Associated Diagnosis Comments TICKBORNE DISEASE ANTIBODY PROFILE, SERUM Routine 03/17/2024 10:10 AM EST documented in this encounter Results * Tickborne Disease Antibody Profile, Serum [...] 2 - 03/23/2024 8:05 PM EST Test(s) [id number] microti IgG was developed and its performance characteristics determined by [facility]. It has not been cleared or approved by the Food and Drug Administration. Performed at: ??01 - [facility] [address] ??[id number] Java Flex Developer: Carmela Nicole MD, Phone: ??[phone] Performed at: ??02 - [facility] [address] ??[id number] Java Flex Developer: Radha Rey MD, Phone: ??[phone] Specimen Comment: A courtesy copy of this report has been sent to [phone] Jayshree MONTANO-Urbano LAB BLOOD ORDERABL ES Final Result [facility] documented in this encounter Visit Diagnoses Not on filedocumented in this encounter Care Teams Media Developer Relationship Specialty Start Date End Date Verenice Brandt FNP [address] [place] [address] PCP - General Family Medicine 01/09/22 documented as of this encounter
--- OUTSIDE RECORDS SUMMARY | 2024-03-25 03:55 | XMS_ITS | Encounter Summary ---
Author Organization [employer] Address [address] [place] [address] Care Team Providers Care Manager Training And Development Name Role Phone Verenice Brandt Primary Care Provider [phone] Reason for Visit * Reason Onset Date Comments discuss blood work results 03/18/2024 Encounter Details Date Type Department Care Team (Late st Contact Info) Description 03/18/2024 Telephone [facility] MEDICAL [address] [place] [address] Verenice Brandt FNP [address] [place] [address] discuss blood work results Social History Tobacco Use Types Packs/Day Years [...] t he electric, gas, oil or water Center'd threatened to shut off services in your [...] on file documented as of this encounter Miscellaneous Notes * Telephone Encounter - Rozina Ocasio LPN - 03/24/2024 8:44 AM EST Spoke with pt. Reviewed PSN's message. Pt states he is on his way to the ED. He will be going to [facility]. Please monitor for ED report. * Telephone Encounter - Shania Perez - 03/24/2024 8:30 AM EST Patient called Please call back * Telephone Encounter - Rozina Ocasio LPN - 03/24/2024 8:17 AM EST Left message for pt to call back. * Telephone Encounter - Amanda Art LPN - 03/23/2024 2:09 PM EST Call placed to patient. LMOM to return call. * Telephone Encounter - Amanda Art LPN - 03/23/2024 2:09 PM EST ----- Message from Jayshree Rowe sent at 03/23/2024 10:02 AM EST ----- Regarding: Tick panel negative US of LT axilla ordered Please contact patient and inform him that the Tick panel is negative. A US of the Lt axilla was ordered of the enlarged lymph node . Please advise him to make an apt and have it completed at his earliest convenience. Thank you Jayshree ----- Message ----- From: Rozina Partida Sent: 03/23/2024 9:40 AM EST To: APRIL Smith * Telephone Encounter - Flora Abraham - 03/23/2024 11:24 AM EST Patient called back for nursing (again) to discuss results. Nursing unavailable. Patient would likea call back at phone number [phone]. Okay to leave a detailed message with results on voicemail. Thank you! * Telephone Encounter - Rozina Ocasio LPN - 03/23/2024 9:56 AM EST Please review results and advise. * Telephone Encounter - Flora Abraham - 03/23/2024 9:27 AM EST Patient called back for nursing. Nursing unavailable. Patient would like a call back at phone number [phone]. Okay to leave a detailed message with results on voicemail. Thank you! * Telephone Encounter - Rozina Ocasio LPN - 03/23/2024 8:38 AM EST Spoke with Argenis at [facility]. She reports the Tick Panel is not complete. She will fax what has resulted so far to [phone]. TE to HIM. Please monitor for results * Telephone Encounter - Debra Cole LPN - 03/19/2024 11:25 AM EST LDMOM advising pt. Results still pending. Told to CB with questions or concerns. * Telephone Encounter - Flora Abraham - 03/18/2024 4:23 PM EST Patient called stating he would like to see and discuss his lab results for [place] Tick PCR Panel blood work he did but is unable to see results on MyChart. Patient would like a call back at phone number [phone]. Okay to leave a detailed message with results on voicemail. Thank you! documented in this encounter Plan of Treatment Not on file documented as of this encounter Visit Diagnoses Not on filedocumented in this encounter Care Teams Manager Training And Development Relationship Specialty Start Date End Date Verenice Brandt FNP [address] [place] [address] PCP - General Family Medicine 01/09/22 documented as of this encounter
[2024-03-25 06:24] VITALS: BP 135/95; PULSE 98; RESP 16; TEMP 36.8; O2SAT 97
--- NOTE | 2024-03-25 08:00 | ED.SKABFB ---
HPI - Skin/Abscess/Foreign Bdy General Chief complaint: Skin/Abscess/Foreign Body Stated complaint: inflammation in armpit? Time Seen by Provider: 03/25/24 07:04 Source: patient Mode of arrival: ambulatory Limitations: no limitations History of Present Illness ED Provider: Dr. 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 He states that he had a tick bite in his area over a year ago and had a tick-borne illness panel which was negative. Patient states that the swelling in his arm is gotten worse, it is increased in size, it is red and it is extremely painful. He denied systemic symptoms such as fever, chills, nausea, vomiting, weakness or fatigue. Patient states he was never had an abscess before. Related Data Previous Rx's ?Medication ?Instructions ?Recorded levofloxacin 750 mg tablet 750 mg PO DAILY 7 days #7 tabs 09/02/23 cephalexin 500 mg capsule 500 mg PO QID 7 days #28 caps 03/25/24 doxycycline hyclate 100 mg tablet 100 mg PO Q12H 7 days #14 tabs 03/25/24 Allergies Allergy/AdvReac Type Severity Reaction Status Date / Time No Known Allergies Allergy Verified 03/25/24 00:03 Review of Systems Review of Systems: Yes all other systems are reviewed and are negative [facility] Past Medical History [facility] Narrative: Social history: Patient was states 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 He denies injection drug use. Social History Social History Advance Directives: No Advance Directives Information Provided: Yes Do you have a plan to hurt others: No Plan Physical Exam Vital Signs: Vital Signs: Last Vital Signs Temp 98.3 F 03/25/24 06:24 Pulse 98 03/25/24 06:24 Resp 16 03/25/24 06:24 BP 135/95 H 03/25/24 06:24 Pulse Ox 97 03/25/24 06:24 O2 Del Method Room Air 03/25/24 06:24 BMI result Body Mass Index 22.4 Vital signs revealed an elevated blood pressure otherwise unremarkable Exam Left axilla: Patient has a 4 x 4 cm mass which feels indurated on the outside rim but does have a central area of flocculence. There is some slight erythema surrounding the skin with increased warmth of this erythema. The lesion is tender to palpation. 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 Vital signs revealed a slight elevation blood pressure otherwise unremarkable. Physical examination did reveal a 4 x 4 cm round lesion to the left axilla she was consistent with an abscess in indurated cellulitis. Differential diagnosis: ?Includes but is not limited to cellulitis, abscess Course: I did incise and drain the axillary access and proximally 70 cc of purulent material was expressed from the abscess. Abscess was packed with Kerlix gauze. The patient was treated in the emergency department with doxycycline 100 mg orally, cephalexin 500 mg orally and ibuprofen 400 mg orally. He was given prescriptions for doxycycline whenever mg q.12 hours x7 days and Keflex (cephalexin) 500 mg, 1 pill 4 times a day for 7 days. He was advised to take Tylenol ibuprofen for pain. He was advised to remove the packing in 4 days. He was given printed and verbal instructions and he was reviewed with the prior to discharge. I did tell the patient that he was absence may be related to Taltz there before his plaque psoriasis but I do not think that the patient needs to discontinue these medications at this time. Admission/Observation Consideration of admission/observation: Escalation of care including admission/observation considered (No) Lab Data [facility] Lab Attestation statement: I reviewed the patient's lab results. My independent interpretation patient's laboratory evaluation as follows: Elevated WBC 80192. CMP was normal. 03/25/24 00:15 03/25/24 00:15 Labs: Lab Results 03/25/24 Range/Units 00:15 WBC 12.9 H (4.8-10.8) X10*3/uL RBC 5.40 (4.60-5.80) X10*6/uL Hgb 17.8 (14.0-18.0) g/dl Hct 50.4 (42.0-52.0) % MCV 93.3 (80.0-98.0) fL MCH 33.0 (27.0-33.0) pg MCHC 35.3 (31.0-36.0) g/dl RDW 13.8 (11.0-16.0) % Plt Count 199 (160-400) X10*3/uL MPV 10.1 (9.4-12.4) fL Immature Gran % (Auto) 0.5 H (0.0-0.4) % Neut % (Auto) 59.0 (45-73) % Lymph % (Auto) 20.1 (20-40) % [place] % (Auto) 18.3 H (2-11) % Eos % (Auto) 1.9 (0-4) % Baso % (Auto) 0.2 (0-2) % Lymph # (Auto) 2.6 (1.2-4.9) X10*3/uL [place] # (Auto) 2.4 H (0.1-1.2) X10*3/uL Eos # (Auto) 0.3 (0.0-0.4) X10*3/uL Baso # (Auto) 0.0 (0.0-0.2) X10*3/uL Abs Immat Gran (auto) 0.06 H (0.00-0.03) X10*3/uL Absolute Neuts (auto) 7.6 (2.0-8.3) x10*3/uL Absolute Nucleated RBC 0.000 (0.0-0.012) X10*3/uL Nucleated RBC % (auto) 0.0 (0.0-0.2) /100WBC Smear Tech's Comments VERIFIED Sodium 139 (135-145) mmol/L Potassium 3.7 (3.3-5.1) mmol/L Chloride 102 (96-108) mmol/L Carbon Dioxide 25 (22-29) mmol/L Anion Gap 16 (12-20) BUN 5 L (9-16) mg/dL Creatinine 0.83 (0.5-1.4) mg/dL Estim Creat Clear Calc 116.2 Estimated GFR > 60 Random Glucose 94 (60-115) mg/dL Lactic Acid 1.3 (0.5-2.0) mmol/L Calcium 9.1 (8.4-10.2) mg/dL Total Bilirubin 0.5 (0.0-1.0) mg/dL AST 37 (5-37) U/L ALT 29 (0-40) U/L Alkaline Phosphatase 102 (39-117) U/L Total Protein 9.6 H (6.5-8.0) g/dL Albumin 4.4 (3.5-5.0) g/dL Prescription Management I considered prescription management with: Antibiotic (Doxycycline and cephalexin) Chronic Conditions Patient?s care impacted by: Other (Plaque psoriasis on biologic agent, Taltz) Procedures Abscess I/D Site: upper extremity (Left axilla) Side (if applicable): left Local Anesthetic: lidocaine 1% Amount of anesthesia used (mL): 10 Technique: incised with blade Amount of fluid expressed (mL): 70 Sent for culture/gram staining?: Yes Irrigation: No Packing used?: plain Complications: other (Patient did experience pain during the procedure but otherwise had no other complications) Discharge Plan Discharge Clinical Impression: Abscess of axilla, left, Encounter for incision and drainage procedure Patient Disposition: Home, Self-Care Instructions: Abscess (ED) Additional Instructions: You had a large abscess filled with pus which I cut open and drained. I also packed the abscess cavity with gauze. The gauze packing needs to stay in for 4 days. If it falls out before 4 days you do not need to come back to the emergency department to get it put back in. After 4 days gently pull on the part that is sticking out of the incision and remove the packing. Take Keflex (cephalexin) 500 mg pills, 1 pill 3 times a day for 7 days. Take doxycycline 100 mg, 1 pill every 12 hours for 7 days Take ibuprofen 200 mg pills, 2 pills every 6 hours as needed for pain or fever. Take Tylenol (acetaminophen) 500 mg pills, 2 pills every 6 hours as needed for pain or fever. Follow-up with your doctor in 2 days. Please return to the emergency department if your symptoms get worse or if you develop any symptoms that are concerning to you. Prescriptions: No Action levofloxacin 750 mg tablet 750 mg PO DAILY 7 Days Qty: 7 0RF Interventions: ED Discharge Assessment Last Done: 03/25/24 08:19 Discharge Date/Time: 03/25/24 08:22 Print Language: Yoruba
[2024-03-25] MEDS: Ibuprofen 400 MG TABLET PO (08:11)
[2024-03-25] MEDS: Doxycycline Monohydrate 100 MG CAPSULE PO (08:11)
[2024-03-25] MEDS: cephALEXin 500 MG CAPSULE PO (08:11)
[2024-03-25] MEDS: Lidocaine HCl 1 % MPF 5 ML VIAL INFILTRATI ×2 (08:12)
[2024-03-25 08:16] VITALS: BP 139/101; PULSE 97; RESP 18; O2SAT 95
[2024-03-25 08:19] VITALS: BP 139/101; PULSE 97; RESP 18; TEMP 36.8; O2SAT 95
== END 2024-03-25 08:22 | disposition home or self-care (01) ==
PROVIDERS: Emergency Provider Emergency Medicine Emergency Medical Services; PCP Family Medicine
DX: L02.412 Cutaneous abscess of left axilla (principal); Z79.899 Other long term (current) drug therapy
CPT/HCPCS: 10060; 36415; 80053; 83605; 85025; 87070; 87077; 87186; 87205; 99283; 99284; J2003